=== PATIENT | male | born 1980 | race African-American/Black ===

== ENCOUNTER 2020-10-03 11:43 | Emergency (ER) | payer OTHER ==
[~2020-10-03] VITALS: Ht 167.6 cm; Wt 77.1 kg
[2020-10-03 13:25] VITALS: BP 136/88; TEMP 97.8
== END 2020-10-03 13:25 | disposition home or self-care (01) ==
LOC: ED 11:43
DX: S39.012A Strain of muscle, fascia and tendon of lower back, initial encounter (principal); X50.1XXA Overexertion from prolonged static or awkward postures, initial encounter; Y92.89 Other specified places as the place of occurrence of the external cause
CPT/HCPCS: 81000; 99282